=== PATIENT | female | born 1965 | race Caucasian/White ===

== ENCOUNTER → 2022-09-14 | Outpatient (CLI) | payer BC, OTHER ==
--- NOTE | 2022-09-14 22:59 | PE ---
EXAMINATION TYPE: PET CT fusion skull to thigh DATE OF EXAM: 09/14/2022 CLINICAL INDICATION:Female, 57 years old with history of R91.1; TECHNIQUE: Following the intravenous administration of 11.4 mCi of F-18 FDG, whole body images are performed from the skull base to the midthigh. Images are reviewed on the computer in the coronal, a xial, and sagittal planes. Reconstructed rotating images are created on independent workstation and reviewed on the computer. A non-contrast CT is performed in conjunction with the PET scan. Glucose level 100 mg/dL COMPARISON: CT None, PET/CT None, chest x-ray 05/17/2021 FINDINGS: Mediastinal SUV mean is 1.5. Hepatic parenchyma SUV mean is 1.8. SKULL BASE AND NECK: * Bilateral thyroid gland uptake max SUV 10.7 on the right and 8.6 on the left. * [place] tonsil symmetric uptake likely physiologic. CHEST, MEDIASTINUM, AND HILAR REGION: No suspicious radiotracer activity. * Scattered small pulmonary nodules that are under the sensitivity threshold for PET/CT. ABDOMEN AND PELVIS: No suspicious radiotracer activity. OSSEOUS STRUCTURES: No suspicious radiotracer activity. OTHER CT: Coronary artery atherosclerosis along with articular sclerosis of the arterial vasculature. There is pulmonary vascular congestion. The heart is mildly enlarged for size. The gallbladder surgi silvestre absent. Multiple high density gallstones are felt to be within the gallbladder remnant. IMPRESSION: 1. No suspicious radiotracer activity. Scattered small pulmonary nodules that are under the sensitiv ity threshold for PET/CT. Consider dedicated CT chest as follow up for a small pulmonary nodules. If prior is made available an addendum with correlation for specific pulmonary nodule can be made. 2. Bilateral thyroid gland FDG activity correlate with thyroid markers for thyroiditis. 3. Findings suggestive of congestive heart failure changes with pulmonary vascular congestion and ca rdiomegaly.
== END | disposition home or self-care (01) ==
LOC: RADPETMAIN 13:26
PROVIDERS: ATTEND Internal Medicine Critical Care Medicine
DX: R91.8 Other nonspecific abnormal finding of lung field (principal); I51.7 Cardiomegaly; R09.89 Other specified symptoms and signs involving the circulatory and respiratory systems
CPT/HCPCS: 78815; A9552